=== PATIENT | female | born 1995 | race African-American/Black ===

== ENCOUNTER 2025-04-03 09:11 | Emergency (ER) | payer MEDICAID ==
[~2025-04-03] VITALS: Ht 157.5 cm; Wt 55.0 kg
[2025-04-03 09:34] VITALS: O2SAT 100
[2025-04-03 10:35] LABS: CLARITY URINE CLEAR (CLEAR); COLOR URINE YELLOW (YELLOW); GLUCOSE URINE NEGATIVE (NEGATIVE); KETONES URINE TRACE (NEGATIVE); LEUKOCYTE ESTERASE URINE 2+ (NEGATIVE); NITRITE URINE NEGATIVE (NEGATIVE); OCCULT BLOOD URINE 1+ (NEGATIVE); PH URINE 6.0 (4.5-8.0); PROTEIN URINE NEGATIVE (NEGATIVE); SPECIFIC GRAVITY URINE 1.022 (1.005-1.030); UROBILINOGEN URINE 0.2 E.U./dL (0.2-1.0)
[2025-04-03] MEDS ORDERED: NITR100C MT (10:50)
[2025-04-03 10:58] VITALS: BP 104/73; PULSE 100; RESP 18; TEMP 37.1; O2SAT 100
[2025-04-03 11:53] LABS: SQUAMOUS EPITHELIAL CELL URINE 1+ /lpf (RARE/1+)
[2025-04-03 11:54] LABS: BACTERIA URINE TRACE; YEAST URINE NONE SEEN
[2025-04-03 11:55] LABS: MUCUS URINE TRACE /lpf (< = 2+)
== END 2025-04-03 10:59 | disposition home or self-care (01) ==
LOC: ER 09:11
DX: N39.0 Urinary tract infection, site not specified (principal)
CPT/HCPCS: 81003; 81025; 87077; 87186; 99283